=== PATIENT | male | born 2000 | race Hispanic/Latino ===

== ENCOUNTER 2019-05-28 14:09 | Emergency (ER) | payer BC ==
[~2019-05-28] VITALS: Ht 175.3 cm; Wt 75.0 kg
[2019-05-28] MEDS ORDERED: PENICILLN VK500 MG PO (14:57)
[2019-05-28 15:00] VITALS: BP 138/73
== END 2019-05-28 15:00 | disposition home or self-care (01) | DRG 159 ==
LOC: EDBD 14:09 → ED 14:09
DX: K04.7 Periapical abscess without sinus (principal); F17.210 Nicotine dependence, cigarettes, uncomplicated